=== PATIENT | male | born 1970 | race Caucasian/White ===

== ENCOUNTER 2020-04-25 12:51 | Observation (INO) | payer MEDICARE, MEDICAID ==
[~2020-04-25] VITALS: Ht 177.8 cm; Wt 86.3 kg
[2020-04-25 13:57] LABS: BASO % 0 % (0-3); EOS # 0.2 x10^3/uL (0.0-0.7); EOS % 1 % (0-3); HEMATOCRIT 45.7 % (39.0-53.0); HEMOGLOBIN 16.1 g/dL (13.0-17.5); LYMPH # 2.6 x10^3/uL (1.0-4.8); LYMPH % 21 % (24-48); MEAN CORPUSCULAR HEMOGLOBIN 33 pg (25-35); MEAN CORPUSCULAR HGB CONC 35 g/dL (31-37); MEAN CORPUSCULAR VOLUME 94 fL (79-100); MONO # 0.6 x10^3/uL (0.0-1.1); MONO % 5 % (0-9); NEUT # 9.3 x10^3/uL (1.8-7.7); NEUT % 73 % (31-73); PLATELET COUNT 246 x10^3/uL (140-400); RED BLOOD COUNT 4.89 x10^6/uL (4.30-5.70); RED CELL DISTRIBUTION WIDTH 13.4 % (11.5-14.5); WHITE BLOOD COUNT 12.7 x10^3/uL (4.0-11.0)
[2020-04-25 13:58] LABS: BILIRUBIN,URINE NEGATIVE (NEG); CLARITY,URINE CLEAR; COLOR,URINE YELLOW; NITRITE,URINE NEGATIVE (NEG); PROTEIN,URINE NEGATIVE (NEG-TRACE); UROBILINOGEN,URINE 0.2 mg/dL (0.2 mg/dL)
[2020-04-25 14:04] LABS: BARBITURATES NEG (NEG); BENZODIAZEPINES NEG (NEG); CANNABINOIDS NEG (NEG); COCAINE NEG (NEG); METHADONE NEG (NEG); OPIATES NEG (NEG); PHENCYCLIDINE NEG (NEG)
[2020-04-25 14:05] LABS: BACTERIA,URINE 0 /HPF (0-FEW); RBC,URINE OCC /HPF (0-2)
[2020-04-25 14:07] LABS: AMPHETAMINE/METHAMPHETAMINE NEG (NEG)
[2020-04-25 14:08] LABS: CALCIUM 9.2 mg/dL (8.5-10.1); CREATININE 0.9 mg/dL (0.7-1.3); GFR 89.7; POTASSIUM 3.5 mmol/L (3.5-5.1)
[2020-04-25 14:11] LABS: ACETAMIN < 2 mcg/ml (10-30); ETHANOL < 10 mg/dL (0-10); SALIC 6.5 mg/dL (2.8-20.0)
[2020-04-25 14:14] LABS: ALBUMIN 3.8 g/dL (3.4-5.0); ALBUMIN/GLOBULIN RATIO 1.2 (1.0-1.7); TOTAL BILIRUBIN 0.8 mg/dL (0.2-1.0)
--- NOTE | 2020-04-25 15:03 | PHYS DOC ---
Past Medical History Past Medical History: Schizophrenia (NICOLE HENRIQUEZ APRN) Past Surgical History: Cholecystectomy, Tonsillectomy, Other Additional Past Surgical Histo: NASAL,R ANKLE ORIF (NICOLE HENRIQUEZ APRN) Smoking Status: Current Every Day Smoker Additional Information: 1 PPD Alcohol Use: None (NICOLE HENRIQUEZ APRN) General Adult EDM: Chief Complaint: PSYCH EVALUATION HPI: HPI: Patient is a 50 year old male who presents to the emergency department with complaints of paranoia and need for his schizophrenia to be managed. Patient denies any suicidal or homicidal ideations. He currently denies any auditory or visual hallucinations. However last night patient states that he was in [place] and that he saw people watching him and drones flying in the [place]. Patient states that the last time he tried to hurt himself was over a year ago when he intentionally let mosquitoes bite him hoping to catch the West Nile virus. He currently denies any fever, cough, shortness of breath, nausea, vomiting, diarrhea, abdominal pain, back pain, body aches, fatigue, rash, chest pain, or palpitations. He currently denies any pain. (NICOLE HENRIQUEZ APRN) Review of Systems: Review of Systems: Complete review of systems is negative unless otherwise documented in the HPI. (NICOLE HENRIQUEZ APRN) Heart Score: Risk Factors: Risk Factors: DM, Current or recent (<one month) smoker, HTN, HLP, family history of CAD, obesity. Risk Scores: Score 0 - 3: 2.5% MACE over next 6 weeks - Discharge Home Score 4 - 6: 20.3% MACE over next 6 weeks - Admit for Clinical Observation Score 7 - 10: 72.7% MACE over next 6 weeks - Early Invasive Strategies (NICOLE HENRIQUEZ APRN) Allergies: Allergies: Allergies Coded Allergies Type Severity Reaction Last Updated Verified Benzodiazepines Allergy Intermediate UNKNOWN 04/25/20 Yes (NICOLE HENRIQUEZ APRN) Physical Exam: PE: Constitutional: Well developed, well nourished, moderate distress, non-toxic appearance, anxious. [] HENT: Normocephalic, atraumatic, bilateral external ears normal, nose normal. [] Eyes: PERRLA, EOMI, conjunctiva normal, no discharge. [] Neck: Normal range of motion, no stridor. [] Cardiovascular:Heart rate regular rhythm Lungs & Thorax: Respirations even and unlabored, no retractions, no respiratory distress Abdomen: soft, no tenderness Skin: Warm, dry, no erythema, no rash. [] Extremities: No cyanosis, ROM intact Neurologic: Alert and oriented X 3, no focal deficits noted. [] Psychologic: Affect hyperverbal, delusional; judgement impaired; mood paranoid (NICOLE HENRIQUEZ APRN) Current Patient Data: Labs: Laboratory Tests Test 04/25/20 13:40 04/25/20 13:48 Urine Color Yellow Urine Clarity Clear Urine pH 6.0 (<5.0-8.0) Urine Specific [place] 1.020 (1.000-1.030) Urine Protein Negative mg/dL (NEG-TRACE) Urine Glucose (UA) Negative mg/dL (NEG) Urine Ketones (Stick) Negative mg/dL (NEG) Urine Blood Negative (NEG) Urine Nitrite Negative (NEG) Urine Bilirubin Negative (NEG) Urine Urobilinogen Dipstick 0.2 mg/dL (0.2 mg/dL) Urine Leukocyte Esterase Small (NEG) Urine RBC Occ /HPF (0-2) Urine WBC 5-10 /HPF (0-4) Urine Bacteria 0 /HPF (0-FEW) Urine Mucus Marked /LPF Urine Opiates Screen Neg (NEG) Urine Methadone Screen Neg (NEG) Urine Barbiturates Neg (NEG) Urine Phencyclidine Screen Neg (NEG) Urine Amphetamine/Methamphetamine Neg (NEG) Urine Benzodiazepines Screen Neg (NEG) Urine Cocaine Screen Neg (NEG) Urine Cannabinoids Screen Neg (NEG) Urine Ethyl Alcohol Neg (NEG) White Blood Count 12.7 x10^3/uL (4.0-11.0) H Red Blood Count 4.89 x10^6/uL (4.30-5.70) Hemoglobin 16.1 g/dL (13.0-17.5) Hematocrit 45.7 % (39.0-53.0) Mean Corpuscular Volume 94 fL (79-100) Mean Corpuscular Hemoglobin 33 pg (25-35) Mean Corpuscular Hemoglobin Concent 35 g/dL (31-37) Red Cell Distribution Width 13.4 % (11.5-14.5) Platelet Count 246 x10^3/uL (140-400) Neutrophils (%) (Auto) 73 % (31-73) Lymphocytes (%) (Auto) 21 % (24-48) L Monocytes (%) (Auto) 5 % (0-9) Eosinophils (%) (Auto) 1 % (0-3) Basophils (%) (Auto) 0 % (0-3) Neutrophils # (Auto) 9.3 x10^3/uL (1.8-7.7) H Lymphocytes # (Auto) 2.6 x10^3/uL (1.0-4.8) Monocytes # (Auto) 0.6 x10^3/uL (0.0-1.1) Eosinophils # (Auto) 0.2 x10^3/uL (0.0-0.7) Basophils # (Auto) 0.0 x10^3/uL (0.0-0.2) Sodium Level 140 mmol/L (136-145) Potassium Level 3.5 mmol/L (3.5-5.1) Chloride Level 103 mmol/L (98-107) Carbon Dioxide Level 27 mmol/L (21-32) Anion Gap 10 (6-14) Blood Urea Nitrogen 7 mg/dL (8-26) L Creatinine 0.9 mg/dL (0.7-1.3) Estimated GFR (Cockcroft-Gault) 89.7 BUN/Creatinine Ratio 8 (6-20) Glucose Level 109 mg/dL (70-99) H Calcium Level 9.2 mg/dL (8.5-10.1) Total Bilirubin 0.8 mg/dL (0.2-1.0) Aspartate Amino Transferase (AST) 12 U/L (15-37) L Alanine Aminotransferase (ALT) 16 U/L (16-63) Alkaline Phosphatase 118 U/L (46-116) H Total Protein 7.0 g/dL (6.4-8.2) Albumin 3.8 g/dL (3.4-5.0) Albumin/Globulin Ratio 1.2 (1.0-1.7) Salicylates Level 6.5 mg/dL (2.8-20.0) Salicylate Last Dose Date Unknown Salicylate Last Dose Time Unknown Acetaminophen Level < 2 mcg/ml (10-30) L Acetaminophen Last Dose Date Unknown Acetaminophen Last Dose Time Unknown Ethyl Alcohol Level < 10 mg/dL (0-10) Laboratory Tests 04/25/20 13:48 Laboratory Tests 04/25/20 13:48 Vital Signs: Vital Signs Date Time Temp Pulse Resp B/P (MAP) Pulse Ox O2 Delivery O2 Flow Rate FiO2 04/25/20 13:01 99.2 100 20 143/81 (101) 95 Room Air 99.2 (NICOLE HENRIQUEZ APRN) EKG: EKG: [] (NICOLE HENRIQUEZ APRN) Radiology/Procedures: Radiology/Procedures: [] (NICOLE HENRIQUEZ APRN) Course & Med Decision Making: Course & Med Decision Making Pertinent Labs and Imaging studies reviewed. (See chart for details) Patient is a 50-year-old male who presented to the emergency department with complaints of paranoia and request for his schizophrenia to be managed. Work-up includes a CBC, CMP, UA, UDS, Tylenol level, salicylate level, and ethanol level. PAT consult has been ordered. We will continue to monitor the patient, he is not actively hallucinating and is following commands upon arrival to the emergency room. 1610-Per Rosa Isela with the PAT team the patient needs to have a negative COVID test before he can be transferred to a psychiatric facility for further treatment. While Rosa Isela was conversing with the patient the patient admitted to having suicidal ideations and states that his plan is to jump out in front of a photocopying equipment mechanic in order to kill himself. [address] Suresh who is the admitting physician, and care was assumed following discussion of patient. Patient's vital signs stable. Patient remains afebrile, appears nontoxic, respirations even and unlabored. [facility] with a one-to-one for safety patient's case and plan of care also discussed with Dr. Pereyra [] (NICOLE HENRIQUEZ APRN) Rhonda Disclaimer: Rhonda Disclaimer: This electronic medical record was generated, in whole or in part, using a voice recognition dictation system. (NICOLE HENRIQUEZ APRN) Departure Departure Impression: Primary Impression: Acute psychosis Additional Impressions: Delusions Suicidal ideations Disposition: ADMITTED INPATIENT Admitting Physician: BAIRON [place]) (NICOLE HENRIQUEZ APRN) Condition: STABLE Referrals: NO PCP (PCP) Justicifation of Admission Dx: Justifications for Admission: Justification of Admission Dx: Yes Comments: active suicidal ideations, acute psychosis (NICOLE HENRIQUEZ APRN) Attending Signature Attending Signature I have reviewed the PA/MOTEL FRONT DESK CLERK's note and plan of care. I was available for consultation as needed during the patient's visit in the emergency department. I agree with the clinical impression, plan, and disposition. (JOJO PEREYRA DO) NICOLE HENRIQUEZ APRN Apr 25, 2020 15:03 JOJO PEREYRA DO Apr 26, 2020 07:12
[2020-04-25] MEDS ORDERED: ZIPRASIDONE 20 MG CAPSULE PO STA (20:18)
--- NOTE | 2020-04-25 20:21 | HP ---
ADMIT DATE: 04/25/2020 CHIEF COMPLAINT: Suicidal ideation. HISTORY OF PRESENT ILLNESS: The patient is a pleasant 50-year-old male who presented to the ER with suicidal ideation. He has schizophrenia. We called the psychiatric assessment team. They are okay with placing him in a facility, but he needs to be ruled out for COVID first before them accepting. I discussed the case with ER physician. We are going to admit the patient and rule out COVID. PAST MEDICAL HISTORY: Schizophrenia, cholecystectomy, tonsillectomy, nasal surgery, right ankle surgery, tobacco abuse. ALLERGIES: BENZOS. FAMILY HISTORY: Diabetes. SOCIAL HISTORY: I think he lives alone. He states he has been inside for 3 months. He smokes. No drink or drugs. MEDICATIONS: Reviewed, please refer to the MRAD. REVIEW OF SYSTEMS: GENERAL: No history of weight change, weakness or fevers. SKIN: No bruising, hair changes or rashes. EYES: No blurred, double or loss of vision. NOSE AND THROAT: No history of nosebleeds, hoarseness or sore throat. HEART: No history of palpitations, chest pain or shortness of breath on exertion. LUNGS: Denies cough, hemoptysis, wheezing or shortness of breath. GASTROINTESTINAL: Denies changes in appetite, nausea, vomiting, diarrhea or constipation. GENITOURINARY: No history of frequency, urgency, hesitancy or nocturia. NEUROLOGIC: Denies history of numbness, tingling, tremor or weakness. PSYCHIATRIC: He complains of suicidal ideation. ENDOCRINE: No history of heat or cold intolerance, polyuria or polydipsia. EXTREMITIES: Denies muscle weakness, joint pain, pain on walking or stiffness. PHYSICAL EXAMINATION: VITALS: Within normal limits and are stable. GENERAL: No apparent distress. Alert and oriented. HEENT: Normal cephalic atraumatic, external auditory canals are patent. EYES: Extraocular muscles are intact, pupils are equally round and reactive to light and accommodation. MUSCULOSKELETAL: Well developed, well nourished, good range of motion. ENDOCRINE: No thyromegaly was palpated. LYMPHATICS: No cervical chain or axillary nodes were noted. HEMATOPOIETIC: No bruising. NECK: Supple, no JVD, no thyromegaly was noted. LUNGS: Clear to auscultation in all lung conner without rhonchi or wheezing. HEART: RRR, S1, S2 present. Peripheral pulses intact, no obvious murmurs were noted. ABDOMEN: Soft, nontender. Positive bowel sounds no organomegaly, normal bowel sounds. EXTREMITIES: Without any cyanosis, clubbing, or edema. Pedal pulses intact, Homans sign is negative. NEUROLOGIC: Normal speech, normal tone. A & O x3, moves all extremities, no obvious focal deficits. PSYCHIATRIC: He is extremely talkative, impulsive, but pleasant. He admits to suicidal ideation. SKIN: No ulcerations or rashes, good skin turgor, no jaundice. VASCULAR: Good capillary refill, neurovascular bundle appears to be intact. ASSESSMENT AND PLAN: Suicidal ideation. The patient has been admitted to rule out COVID-19. They were again into an inpatient Psych Unit. For now, home meds, DVT prophylaxis. Full code. Cardiac monitoring, one-to-one observation. CRISTIANE GARDINER DO DR: ALFREDO/marcel JOB#: [id number] / [id number]
--- NOTE | 2020-04-26 10:14 | PDOC ---
[employer] PROGRESS NOTE Chief Complaint Chief Complaint Suicidal ideation Schizophrenia, cholecystectomy, tonsillectomy, nasal surgery, right ankle surgery, tobacco abuse. History of Present Illness History of Present Illness 04/26/2020 Patient seen and examined in the ER holding area Discussed with RN Chart reviewed Discussed with case management Plans to discharge him to inpatient psych if his COVID test is negative (we took the swab at 8:00 this morning and should be back in 3 hours is what I have been told) Vitals/I&O Vitals/I&O: Vital Signs Date Time Temp Pulse Resp B/P (MAP) Pulse Ox O2 Delivery O2 Flow Rate FiO2 04/26/20 06:22 68 16 115/72 (86) 94 Room Air 04/25/20 13:01 99.2 99.2 Physical Exam General: mild distress, Other (Agitated confabulating hallucinating) Heart: Regular rate, Normal S1 Lungs: Clear Abdomen: Normal bowel sounds, Soft Extremities: No clubbing, No cyanosis Skin: No rashes, No breakdown Labs Labs: Laboratory Tests Test 04/25/20 13:40 04/25/20 13:48 Urine Color Yellow Urine Clarity Clear Urine pH 6.0 (<5.0-8.0) Urine Specific [place] 1.020 (1.000-1.030) Urine Protein Negative mg/dL (NEG-TRACE) Urine Glucose (UA) Negative mg/dL (NEG) Urine Ketones (Stick) Negative mg/dL (NEG) Urine Blood Negative (NEG) Urine Nitrite Negative (NEG) Urine Bilirubin Negative (NEG) Urine Urobilinogen Dipstick 0.2 mg/dL (0.2 mg/dL) Urine Leukocyte Esterase Small (NEG) Urine RBC Occ /HPF (0-2) Urine WBC 5-10 /HPF (0-4) Urine Bacteria 0 /HPF (0-FEW) Urine Mucus Marked /LPF Urine Opiates Screen Neg (NEG) Urine Methadone Screen Neg (NEG) Urine Barbiturates Neg (NEG) Urine Phencyclidine Screen Neg (NEG) Urine Amphetamine/Methamphetamine Neg (NEG) Urine Benzodiazepines Screen Neg (NEG) Urine Cocaine Screen Neg (NEG) Urine Cannabinoids Screen Neg (NEG) Urine Ethyl Alcohol Neg (NEG) White Blood Count 12.7 x10^3/uL (4.0-11.0) Red Blood Count 4.89 x10^6/uL (4.30-5.70) Hemoglobin 16.1 g/dL (13.0-17.5) Hematocrit 45.7 % (39.0-53.0) Mean Corpuscular Volume 94 fL (79-100) Mean Corpuscular Hemoglobin 33 pg (25-35) Mean Corpuscular Hemoglobin Concent 35 g/dL (31-37) Red Cell Distribution Width 13.4 % (11.5-14.5) Platelet Count 246 x10^3/uL (140-400) Neutrophils (%) (Auto) 73 % (31-73) Lymphocytes (%) (Auto) 21 % (24-48) Monocytes (%) (Auto) 5 % (0-9) Eosinophils (%) (Auto) 1 % (0-3) Basophils (%) (Auto) 0 % (0-3) Neutrophils # (Auto) 9.3 x10^3/uL (1.8-7.7) Lymphocytes # (Auto) 2.6 x10^3/uL (1.0-4.8) Monocytes # (Auto) 0.6 x10^3/uL (0.0-1.1) Eosinophils # (Auto) 0.2 x10^3/uL (0.0-0.7) Basophils # (Auto) 0.0 x10^3/uL (0.0-0.2) Sodium Level 140 mmol/L (136-145) Potassium Level 3.5 mmol/L (3.5-5.1) Chloride Level 103 mmol/L (98-107) Carbon Dioxide Level 27 mmol/L (21-32) Anion Gap 10 (6-14) Blood Urea Nitrogen 7 mg/dL (8-26) Creatinine 0.9 mg/dL (0.7-1.3) Estimated GFR (Cockcroft-Gault) 89.7 BUN/Creatinine Ratio 8 (6-20) Glucose Level 109 mg/dL (70-99) Calcium Level 9.2 mg/dL (8.5-10.1) Total Bilirubin 0.8 mg/dL (0.2-1.0) Aspartate Amino Transf (AST/SGOT) 12 U/L (15-37) Alanine Aminotransferase (ALT/SGPT) 16 U/L (16-63) Alkaline Phosphatase 118 U/L (46-116) Total Protein 7.0 g/dL (6.4-8.2) Albumin 3.8 g/dL (3.4-5.0) Albumin/Globulin Ratio 1.2 (1.0-1.7) Salicylates Level 6.5 mg/dL (2.8-20.0) Salicylate Last Dose Date Unknown Salicylate Last Dose Time Unknown Acetaminophen Level < 2 mcg/ml (10-30) Acetaminophen Last Dose Date Unknown Acetaminophen Last Dose Time Unknown Ethyl Alcohol Level < 10 mg/dL (0-10) Assessment and Plan Assessmemt and Plan Problems Medical Problems: (1) Acute psychosis Status: Acute (2) Delusions Status: Acute (3) Suicidal ideations Status: Acute Suicidal ideation Schizophrenia, cholecystectomy, tonsillectomy, nasal surgery, right ankle surgery, tobacco abuse. Plan Await COVID-19 testing and if negative transfer to inpatient psych Comment Review of Relevant I have reviewed the following items guero (where applicable) has been applied. Medications: Current Medications Medications (Trade) Dose Ordered Sig/David Route PRN Reason Start Time Stop Time Status Last Admin Dose Admin Ziprasidone (Geodon) 20 mg 1X STAT PO 04/25/20 20:18 04/25/20 20:24 DC 04/25/20 20:34 Justicifation of Admission Dx: Justifications for Admission: Justification of Admission Dx: Yes Altered Mental Status: Altered Mental Status CRISTIANE GARDINER III DO Apr 26, 2020 10:13
--- NOTE | 2020-04-26 11:05 | DS ---
DATE OF DISCHARGE: 04/26/2020 ADMISSION DIAGNOSIS: Psychosis and suicidal ideation. DISCHARGE DIAGNOSES: Suicidal ideation, history of schizophrenia, drug abuse, history of cholecystectomy, tonsillectomy, nasal surgery, right ankle surgery, tobacco abuse. HOSPITAL COURSE: The patient is a pleasant middle-aged male who basically presented to the ER yesterday with suicidal ideation. We admitted him overnight for observation because he has to be ruled out for COVID-19. This morning, I saw him and examined him, he is doing well, but very agitated, needs to go to inpatient psych. The COVID-19 test should be back by noon today. If negative, we plan to discharge to inpatient psych. DISPOSITION: Inpatient psych. ACTIVITY: As tolerated. DIET: Low sodium. MEDICATIONS: Please see the MRAD. TOTAL TIME: 31 minutes. CRISTIANE GARDINER DO DR: ALFREDO/marcel JOB#: [id number] / [id number]
[2020-04-26 14:36] VITALS: BP 125/86
== END 2020-04-26 15:15 ==
LOC: ER 12:51 → ED HOLD 16:20
PROVIDERS: ADMIT Internal Medicine; ATTEND Internal Medicine
DX: Z03.818 Encounter for observation for suspected exposure to other biological agents ruled out (principal); R45.851 Suicidal ideations; I10 Essential (primary) hypertension; F23 Brief psychotic disorder; F22 Delusional disorders; E11.9 Type 2 diabetes mellitus without complications; E66.9 Obesity, unspecified; E78.5 Hyperlipidemia, unspecified; F17.200 Nicotine dependence, unspecified, uncomplicated; Z90.49 Acquired absence of other specified parts of digestive tract; Z98.890 Other specified postprocedural states; Z79.899 Other long term (current) drug therapy; Z68.27 Body mass index [BMI] 27.0-27.9, adult
CPT/HCPCS: 36415; 80053; 80307; 80329; 81001; 85025; 87086; 99284; G0378; G0480; U0003; G0379

== ENCOUNTER 2020-06-02 12:12 | Emergency (ER) | payer MEDICARE, MEDICAID ==
[~2020-06-02] VITALS: Ht 177.8 cm; Wt 85.0 kg
[2020-06-02] MEDS ORDERED: IV NORMAL SALINE 1000ML BAG 1,000 ML IV ONE (12:30)
--- NOTE | 2020-06-02 12:33 | PHYS DOC ---
Past Medical History Past Medical History: Schizophrenia Past Surgical History: Cholecystectomy, Tonsillectomy, Other Additional Past Surgical Histo: NASAL,R ANKLE ORIF Smoking Status: Current Every Day Smoker Alcohol Use: None General Adult HPI: HPI: Patient is a 50 year old male who presents with sampler pickup by EMS after he had been walking with a large heavy back pack and vest on from [place] trying to get to [facility]. He states he is homeless off and on. He states he was staying with his ex- in which he does not feel safe. He states his ex- is a doctor with a violent history and would not let him take any of his psych medications because they state that he does not need them. He states that he feels unsafe living with her because " she has a big voodoo behind her that a lot of celebrities her in". He then states that they all came to their wedding and he did not want them there. He states " they are bad people that do bad things." He states when he stopped to go to the restroom at a gas station in [place] that he had pain with urination. He states he has not been having sex because he has erectile dysfunction and cannot have sex. He states he has no concerns for sexually transmitted diseases and denies any penile discharge. He denies any lead in his urine. Patient then goes on to talk about how he would "put his life on the line for Officer Thea Baker" and she is the "only one he feels safe being around." Patient denies back pain, abdominal pain, nausea, vomiting, diarrhea, fever, cough, chest pain, shortness of breath, dizziness, headache, vision changes, numbness or tingling, focal weakness, SI, HI, hearing voices, visual hallucinations, tactile hallucinations. Does have a history of SI, delusions, psychosis, cholecystectomy, schizophrenia, smoker. Patient states he wants to talk to our psych fuel verification technician to help him. Denies any pain. Patient agrees to IV fluids and blood work. Review of Systems: Review of Systems: Constitutional: Denies fever or chills. [] Eyes: Denies change in visual acuity. [] HENT: Denies nasal congestion or sore throat. [] Respiratory: Denies cough or shortness of breath. [] Cardiovascular: Denies chest pain or edema. [] GI: Denies abdominal pain, nausea, vomiting, bloody stools or diarrhea. [] : + dysuria. [] Musculoskeletal: Denies back pain or joint pain. [] Integument: Denies rash. [] Neurologic: Denies headache, focal weakness or sensory changes. [] Endocrine: Denies polyuria or polydipsia. [] Lymphatic: Denies swollen glands. [] Psychiatric: Denies depression. + anxiety and feels unsafe. [] Heart Score: Risk Factors: Risk Factors: DM, Current or recent (<one month) smoker, HTN, HLP, family history of CAD, obesity. Risk Scores: Score 0 - 3: 2.5% MACE over next 6 weeks - Discharge Home Score 4 - 6: 20.3% MACE over next 6 weeks - Admit for Clinical Observation Score 7 - 10: 72.7% MACE over next 6 weeks - Early Invasive Strategies Allergies: Allergies: Allergies Coded Allergies Type Severity Reaction Last Updated Verified Benzodiazepines Allergy Intermediate UNKNOWN 04/25/20 Yes Physical Exam: PE: Constitutional: Well developed, well nourished, no acute distress, non-toxic appearance. [] HENT: Normocephalic, atraumatic, bilateral external ears normal, oropharynx moist, no oral exudates, nose normal. [] Eyes: PERRLA, EOMI, conjunctiva normal, no discharge. [] Neck: Normal range of motion, no tenderness, supple, no stridor. [] Cardiovascular:Heart rate regular rhythm, no murmur [] Lungs & Thorax: Bilateral breath sounds clear to auscultation [] Abdomen: Bowel sounds normal, soft, no tenderness, no masses, no pulsatile masses. [] Skin: Warm, dry, no erythema, no rash. [] Back: No tenderness, no CVA tenderness. [] Extremities: No tenderness, no cyanosis, no clubbing, ROM intact, no edema. [] Neurologic: Alert and oriented X 3, normal motor function, normal sensory function, no focal deficits noted. [] Psychologic: Flight of thoughts, anxious, affect normal, judgement normal, mood normal. [] EKG: EKG: [] Radiology/Procedures: Radiology/Procedures: [] Course & Med Decision Making: Course & Med Decision Making Pertinent Labs and Imaging studies reviewed. (See chart for details) Alert and oriented. Speaks in full complete sentences. Patient does jump from subject to subject quickly. Patient speaks very quickly. He seems very anxious. He is cooperative. Ambulatory with steady gait. Patient is very sweaty and also been walking on the heel for quite some time. I have spoken to Whitley from PAT team. She is spoken to the patient and will try to place him at a psych facility. Patient is in psychosis. Patient is medically cleared. He has been accepted to [facility]. [] Rhonda Disclaimer: Rhonda Disclaimer: This electronic medical record was generated, in whole or in part, using a voice recognition dictation system. Departure Departure Impression: Primary Impression: Acute psychosis Disposition: 05 TRANSFER OTHER ([facility]) Condition: STABLE Referrals: NO PCP (PCP) Justicifation of Admission Dx: Justifications for Admission: Justification of Admission Dx: Yes Altered Mental Status: Altered Mental Status ALEXANDRA COOPER MILITARY ADMINISTRATIVE TECHNICIAN Jun 02, 2020 12:33
[2020-06-02] MEDS ORDERED: IBUPROFEN 200 MG TABLET. PO ONE (13:00)
[2020-06-02 13:04] LABS: BASO # 0.1 x10^3/uL (0.0-0.2); BASO % 0 % (0-3); EOS # 0.1 x10^3/uL (0.0-0.7); EOS % 1 % (0-3); HEMOGLOBIN 17.4 g/dL (13.0-17.5); LYMPH # 2.1 x10^3/uL (1.0-4.8); LYMPH % 13 % (24-48); MEAN CORPUSCULAR HEMOGLOBIN 34 pg (25-35); MEAN CORPUSCULAR HGB CONC 36 g/dL (31-37); MEAN CORPUSCULAR VOLUME 93 fL (79-100); MONO % 7 % (0-9); NEUT # 12.5 x10^3/uL (1.8-7.7); NEUT % 79 % (31-73); PLATELET COUNT 255 x10^3/uL (140-400); RED BLOOD COUNT 5.18 x10^6/uL (4.30-5.70); RED CELL DISTRIBUTION WIDTH 13.3 % (11.5-14.5); WHITE BLOOD COUNT 15.8 x10^3/uL (4.0-11.0)
[2020-06-02 13:13] LABS: CALCIUM 9.7 mg/dL (8.5-10.1); CREATININE 1.2 mg/dL (0.7-1.3); GFR 64.4; POTASSIUM 3.9 mmol/L (3.5-5.1)
[2020-06-02 13:19] LABS: ALBUMIN 4.1 g/dL (3.4-5.0); TOTAL BILIRUBIN 1.2 mg/dL (0.2-1.0); TOTAL PROTEIN 8.3 g/dL (6.4-8.2)
[2020-06-02 13:21] LABS: ACETAMIN < 2 mcg/ml (10-30); SALIC 6.1 mg/dL (2.8-20.0)
[2020-06-02 13:22] LABS: ETHANOL < 10 mg/dL (0-10)
[2020-06-02 14:13] LABS: BILIRUBIN,URINE SMALL (NEG); CLARITY,URINE CLEAR; COLOR,URINE AMBER; NITRITE,URINE NEGATIVE (NEG); PROTEIN,URINE 30 mg/dL (NEG-TRACE)
[2020-06-02 14:15] LABS: AMPHETAMINE/METHAMPHETAMINE NEG (NEG); BARBITURATES NEG (NEG); BENZODIAZEPINES NEG (NEG); CANNABINOIDS NEG (NEG); COCAINE NEG (NEG); METHADONE NEG (NEG); OPIATES NEG (NEG); PHENCYCLIDINE NEG (NEG)
[2020-06-02 14:16] LABS: BACTERIA,URINE 0 /HPF (0-FEW); HYALINE CASTS, URINE MANY /HPF; WBC,URINE OCC /HPF (0-4)
[2020-06-02 15:16] VITALS: BP 113/72
== END 2020-06-02 17:07 | disposition short-term general hospital (02) ==
LOC: ER 12:12
DX: F23 Brief psychotic disorder (principal); F17.200 Nicotine dependence, unspecified, uncomplicated; Z88.8 Allergy status to other drugs, medicaments and biological substances
CPT/HCPCS: 36415; 80053; 80307; 80329; 81001; 82550; 83690; 85025; 99285; G0480; J7030; U0003

== ENCOUNTER 2021-01-27 02:36 | Emergency (ER) | payer OTHER, MEDICAID ==
[~2021-01-27] VITALS: Ht 177.8 cm; Wt 86.4 kg
[2021-01-27 03:17] LABS: BARBITURATES NEG (NEG); BENZODIAZEPINES NEG (NEG); CANNABINOIDS NEG (NEG); COCAINE NEG (NEG); METHADONE NEG (NEG); OPIATES NEG (NEG); PHENCYCLIDINE NEG (NEG)
[2021-01-27 03:20] LABS: AMPHETAMINE/METHAMPHETAMINE NEG (NEG)
[2021-01-27 03:27] LABS: BASO # 0.1 x10^3/uL (0.0-0.2); BASO % 0 % (0-3); EOS # 0.2 x10^3/uL (0.0-0.7); EOS % 1 % (0-3); HEMOGLOBIN 15.5 g/dL (13.0-17.5); LYMPH # 2.5 x10^3/uL (1.0-4.8); LYMPH % 18 % (24-48); MEAN CORPUSCULAR HEMOGLOBIN 32 pg (25-35); MEAN CORPUSCULAR HGB CONC 35 g/dL (31-37); MEAN CORPUSCULAR VOLUME 94 fL (79-100); MONO # 0.7 x10^3/uL (0.0-1.1); MONO % 5 % (0-9); NEUT # 10.3 x10^3/uL (1.8-7.7); NEUT % 75 % (31-73); PLATELET COUNT 240 x10^3/uL (140-400); RED BLOOD COUNT 4.79 x10^6/uL (4.30-5.70); WHITE BLOOD COUNT 13.7 x10^3/uL (4.0-11.0)
[2021-01-27 03:37] LABS: GFR 79.1; POTASSIUM 3.6 mmol/L (3.5-5.1)
[2021-01-27 03:44] LABS: ACETAMIN < 2 mcg/ml (10-30); ALBUMIN 3.6 g/dL (3.4-5.0); ALBUMIN/GLOBULIN RATIO 1.2 (1.0-1.7); ETHANOL < 10 mg/dL (0-10); TOTAL BILIRUBIN 0.4 mg/dL (0.2-1.0); TOTAL PROTEIN 6.7 g/dL (6.4-8.2)
--- NOTE | 2021-01-27 04:02 | PHYS DOC ---
Past Medical History Past Medical History: Schizophrenia Past Surgical History: Cholecystectomy, Tonsillectomy, Other Additional Past Surgical Histo: NASAL,R ANKLE ORIF Smoking Status: Current Every Day Smoker Alcohol Use: None General Adult EDM: Chief Complaint: PSYCH EVALUATION HPI: HPI: 51-year-old male past medical history of schizophrenia presents to the ER for evaluation. Patient states he would like to be admitted to [facility] for psychiatric care. Patient states he has been living in the [facility] for the last week. He states he is concerned for his life living in [place]. Patient Alert and Oriented but talking on his phone to an AI shrely. Patient denies HI or SI. Review of Systems: Review of Systems: Constitutional: Denies fever or chills. [] Eyes: Denies change in visual acuity. [] HENT: Denies nasal congestion or sore throat. [] Respiratory: Denies cough or shortness of breath. [] Cardiovascular: Denies chest pain or edema. [] GI: Denies abdominal pain, nausea, vomiting, bloody stools or diarrhea. [] : Denies dysuria. [] Musculoskeletal: Denies back pain or joint pain. [Positive extremity pain] Integument: Denies rash. [] Neurologic: Denies headache, focal weakness or sensory changes. [] Endocrine: Denies polyuria or polydipsia. [] Lymphatic: Denies swollen glands. [] Psychiatric: Denies depression or anxiety. [Patient denies any homicidal or suicidal ideation] Heart Score: C/O Chest Pain: No Risk Factors: Risk Factors: DM, Current or recent (<one month) smoker, HTN, HLP, family history of CAD, obesity. Risk Scores: Score 0 - 3: 2.5% MACE over next 6 weeks - Discharge Home Score 4 - 6: 20.3% MACE over next 6 weeks - Admit for Clinical Observation Score 7 - 10: 72.7% MACE over next 6 weeks - Early Invasive Strategies Allergies: Allergies: Allergies Coded Allergies Type Severity Reaction Last Updated Verified Benzodiazepines Allergy Intermediate UNKNOWN 04/25/20 Yes Physical Exam: PE: General: alert, no acute distress. Skin: warm, dry and intact. Head:: Normocephalic, atraumatic. Neck: Trachea midline. Eyes: EOMI, Normal conjunctiva, No drainage CARDIOVASCULAR: Regular rate and rhythm RESPIRATORY: No respiratory distress Back: Full range of motion. MUSCULOSKELETAL: Full range of motion of bilateral upper and lower extremities. GASTROINTESTINAL: Abdomen soft without rebound or guarding. NEUROLOGICAL: Alert and noted to person, place and time. No neurological deficits observed Psychiatric: Cooperative. Normal judgment denies si or hi, schizophrenic, tangential thought Current Patient Data: Labs: Laboratory Tests Test 01/27/21 03:01 01/27/21 03:09 Urine Opiates Screen Neg (NEG) Urine Methadone Screen Neg (NEG) Urine Barbiturates Neg (NEG) Urine Phencyclidine Screen Neg (NEG) Urine Amphetamine/Methamphetamine Neg (NEG) Urine Benzodiazepines Screen Neg (NEG) Urine Cocaine Screen Neg (NEG) Urine Cannabinoids Screen Neg (NEG) Urine Ethyl Alcohol Neg (NEG) White Blood Count 13.7 x10^3/uL (4.0-11.0) H Red Blood Count 4.79 x10^6/uL (4.30-5.70) Hemoglobin 15.5 g/dL (13.0-17.5) Hematocrit 45.0 % (39.0-53.0) Mean Corpuscular Volume 94 fL (79-100) Mean Corpuscular Hemoglobin 32 pg (25-35) Mean Corpuscular Hemoglobin Concent 35 g/dL (31-37) Red Cell Distribution Width 13.0 % (11.5-14.5) Platelet Count 240 x10^3/uL (140-400) Neutrophils (%) (Auto) 75 % (31-73) H Lymphocytes (%) (Auto) 18 % (24-48) L Monocytes (%) (Auto) 5 % (0-9) Eosinophils (%) (Auto) 1 % (0-3) Basophils (%) (Auto) 0 % (0-3) Neutrophils # (Auto) 10.3 x10^3/uL (1.8-7.7) H Lymphocytes # (Auto) 2.5 x10^3/uL (1.0-4.8) Monocytes # (Auto) 0.7 x10^3/uL (0.0-1.1) Eosinophils # (Auto) 0.2 x10^3/uL (0.0-0.7) Basophils # (Auto) 0.1 x10^3/uL (0.0-0.2) Sodium Level 139 mmol/L (136-145) Potassium Level 3.6 mmol/L (3.5-5.1) Chloride Level 103 mmol/L (98-107) Carbon Dioxide Level 29 mmol/L (21-32) Anion Gap 7 (6-14) Blood Urea Nitrogen 14 mg/dL (8-26) Creatinine 1.0 mg/dL (0.7-1.3) Estimated GFR (Cockcroft-Gault) 79.1 BUN/Creatinine Ratio 14 (6-20) Glucose Level 100 mg/dL (70-99) H Calcium Level 9.0 mg/dL (8.5-10.1) Total Bilirubin 0.4 mg/dL (0.2-1.0) Aspartate Amino Transferase (AST) 9 U/L (15-37) L Alanine Aminotransferase (ALT) 19 U/L (16-63) Alkaline Phosphatase 107 U/L (46-116) Total Protein 6.7 g/dL (6.4-8.2) Albumin 3.6 g/dL (3.4-5.0) Albumin/Globulin Ratio 1.2 (1.0-1.7) Salicylates Level 4.0 mg/dL (2.8-20.0) Salicylate Last Dose Date Salicylate Last Dose Time Acetaminophen Level < 2 mcg/ml (10-30) L Acetaminophen Last Dose Date Acetaminophen Last Dose Time Ethyl Alcohol Level < 10 mg/dL (0-10) Laboratory Tests 01/27/21 03:09 Laboratory Tests 01/27/21 03:09 EKG: EKG: [] Radiology/Procedures: Radiology/Procedures: [] Course & Med Decision Making: Course & Med Decision Making Pertinent Labs and Imaging studies reviewed. (See chart for details) Patient was evaluated by PAT team. Patient to be placed at [facility]. COVID test pending. Placement to be approximately 0730hrs. Dragon Disclaimer: Rhonda Disclaimer: This electronic medical record was generated, in whole or in part, using a voice recognition dictation system. Departure Departure Impression: Primary Impression: Schizophrenia Disposition: 01 DC HOME SELF CARE/HOMELESS Condition: STABLE Referrals: NO PCP (PCP) Patient Instructions: Schizophrenia CONRAD NELSON DO Jan 27, 2021 04:02
[2021-01-27 10:19] VITALS: BP 148/74
== END 2021-01-27 11:00 ==
LOC: ER 02:36
DX: F20.9 Schizophrenia, unspecified (principal); Z20.822 Contact with and (suspected) exposure to COVID-19; F17.200 Nicotine dependence, unspecified, uncomplicated; Z90.49 Acquired absence of other specified parts of digestive tract; Z90.89 Acquired absence of other organs; Z98.890 Other specified postprocedural states; Z88.8 Allergy status to other drugs, medicaments and biological substances
CPT/HCPCS: 36415; 80053; 80307; 80329; 85025; 87426; 99285; C9803; G0480; U0003